=== PATIENT | female | born 1985 | race Asian ===

== ENCOUNTER 2021-05-20 14:00 | Emergency (ER) | payer OTHER ==
[~2021-05-20] VITALS: Ht 165.1 cm; Wt 112.5 kg
[2021-05-20 14:03] VITALS: TEMP 97.1
[2021-05-20 14:30] VITALS: BP 140/98
== END 2021-05-20 14:44 | disposition home or self-care (01) ==
LOC: ED 14:00
DX: B02.9 Zoster without complications (principal); I10 Essential (primary) hypertension
CPT/HCPCS: 99281

== ENCOUNTER 2022-06-08 11:51 | Emergency (ER) | payer OTHER ==
[~2022-06-08] VITALS: Ht 165.1 cm; Wt 112.5 kg
[2022-06-08 11:55] VITALS: BP 159/114; TEMP 99
== END 2022-06-08 12:31 | disposition home or self-care (01) ==
LOC: ED 11:51
DX: K02.9 Dental caries, unspecified (principal)
CPT/HCPCS: 99281

== ENCOUNTER 2022-07-22 11:44 | Emergency (ER) | payer OTHER ==
[~2022-07-22] VITALS: Ht 165.1 cm; Wt 108.9 kg
[2022-07-22 11:44] VITALS: BP 162/97; TEMP 97.2
== END 2022-07-22 12:32 | disposition home or self-care (01) ==
LOC: ED 11:44
DX: B02.30 Zoster ocular disease, unspecified (principal)
CPT/HCPCS: 99282

== ENCOUNTER 2022-08-07 13:41 | Emergency (ER) | payer OTHER ==
[~2022-08-07] VITALS: Ht 165.1 cm; Wt 113.4 kg
[2022-08-07 13:50] VITALS: BP 169/110; TEMP 99.4
== END 2022-08-07 15:05 | disposition home or self-care (01) ==
LOC: ED 13:41
DX: K02.9 Dental caries, unspecified (principal)
CPT/HCPCS: 99282